=== PATIENT | male | born 1960 | race Caucasian/White ===

== ENCOUNTER 2019-04-06 07:40 | Observation (INO) | payer OTHER, SELFPAY ==
[2019-04-06 07:41] VITALS: BP 132/101; PULSE 83; RESP 16; TEMP 36.7; O2SAT 97; BMI 31.8
--- NOTE | 2019-04-06 07:52 | ED.VIS.GEN ---
History of Present Illness Chief Complaint: Abd Pain Informant: Patient Onset: - March 31 Context: Sudden Onset Timing: Continuous Quality: Initially ache now pain Location: Anteriorly over left kidney and left mid back Current Severity: Moderate Maximum Severity: Moderate Worsened by: Eating Relieved by: Nothing Associated Symptoms: Nausea Narrative: Patient is a middle-aged male with history of hypertension and renal/ureterolithiasis who presents with several days of left-sided abdominal pain. The pain radiates to the back. He denies dysuria, frequency, urgency or hematuria. He reports pain is worse with eating. Any type of food or beverage causes discomfort. He also reported heartburn with sour taste in back of his mouth for the past 5 evenings. He denies history of cholelithiasis or intolerance to greasy or fried foods. He denies history of diverticulosis or diverticulitis. He denies radiation of pain into his testicles. He denies change in color, consistency or caliber of his stool. He denies diarrhea, black or maroon stool. Change in position does not affect his discomfort. There is no history of trauma. He states this pain is different than the pain he has experienced with kidney stones. He reports history of GERD. Prior similar symptoms: No Recent Illness/Hospitalization: No - Past Medical History (1) Kidney calculi Status: Acute (2) History of hypertension Status: Acute Past Medical History - Allergies and Home Meds Allergies/Adverse Reactions: Allergies Z-MO Allergy (Uncoded 04/06/19 07:41) Other Primary Care Physician: EUNICE ECHEVERRIA [Other] Timoteo Jack MD [STAFF PHYSICIAN] - Prior records reviewed: Yes Surgical History: no surgical history Lives: Spouse/ Significant Other Smoking Status: Never smoker Drugs: None Review of Systems General: Denies: Chills, Fever, Sweats Eyes: Denies: Visual changes - bilaterally, Diplopia ENT: Denies: Rhinorrhea, Sore throat Cardiovascular: Denies: Chest pain, Palpitations, Heart racing Respiratory: Denies: Dyspnea, Cough, Dyspnea on exertion Gastrointestinal: Reports: Abdominal pain, Nausea. Denies: Vomiting, Diarrhea, Constipation, Melena, Hematochezia Genitourinary: Denies: Dysuria, Hematuria, Frequency Musculoskeletal: Reports: Back pain. Denies: Myalgias, Arthralgias, Neck pain, Swelling, Extremity Pain Skin: Denies: Rash, Wounds Neurological: Denies: Headache, Weakness, Numbness Hematologic: Denies: Easy bruising, Easy bleeding Physical Exam Vital Signs/Narrative: Vital Signs Temp Pulse Resp BP Pulse Ox 04/06/19 07:41 98.1 F 83 16 132/101 H 97 Inital Vital Signs reviewed: Yes General: Well nourished, Well developed, Acute Distress - Does look uncomfortable. He was sitting in a chair next to the examination cot when I entered. Head: Normocephalic, Atraumatic Eyes: Perrl, EOMI ENT: Moist mucous membranes, No rhinorrhea Neck: Supple, Nontender, No lymphadenopathy, No JVD Cardiovascular: Regular rate, Regular rhythm, No murmurs, Normal S1, Normal S2 Respiratory: No distress, CTA bilaterally, Chest nontender Abdomen: Soft, Nondistended, Normal bowel sounds, Tender - Tenderness to deep palpation over the left kidney. There is no guarding or rebound tenderness, Hypoactive bowel sounds. Negative for: Guarding, Rebound tenderness, Hepatomegaly, Splenomegaly, Mass, Pulsatile mass, Ventral hernia, Inguinal hernia, Umbilical hernia Back: Nontender, Normal Inspection Extremities: Nontender, No edema Skin: Normal color, No rash Neurological: Alert, Oriented x3, Cranial nerves II-XII grossly intact, Normal Strength, Normal Sensation, Normal Gait Psychological: Normal affect, Normal Mood Diagnostic/Tx/Re-eval Impressions Abdomen/Pelvis CT 04/06/19 08:38 IMPRESSION: There is a 8mm stone in the mid left ureter causing left-sided hydronephrosis, hydroureter, perinephric and periureteral inflammatory stranding. Nonobstructing left nephrolithiasis Normal appendix visualized Electronically Signed: Praveen Sanders MD at 9:11 EDT , Service support , 04/06/19 08:38 Abdomen/Pelvis without Cont [CT] Stat Laboratory Results 04/06/19 04/06/19 08:05 08:05 WBC 6.0 RBC 5.05 Hgb 15.7 Hct 44.9 MCV 88.9 MCH 31.1 MCHC 35.0 RDW Std Deviation 40.7 RDW Coeff of Julius 12.6 Plt Count 159 MPV 9.8 Immature Gran % (Auto) 0.300 Neut % (Auto) 56.0 Lymph % (Auto) 29.7 [place] % (Auto) 11.0 H Eos % (Auto) 2.2 Baso % (Auto) 0.8 Absolute Neuts (auto) 3.4 Absolute Lymphs (auto) 1.79 Absolute Nucleated RBC 0.00 Nucleated RBC % 0 Sodium 137 Potassium 4.2 Chloride 106 Carbon Dioxide 26.0 Anion Gap 5 BUN 16 Creatinine 1.26 Estim Creat Clear Calc 71.85 Est GFR (MDRD) Af Amer 76 Est GFR (MDRD) Non-Af 63 BUN/Creatinine Ratio 12.7 Glucose 110 H Calcium 8.9 - Medical Decision Making To evaluate patient's left-sided abdominal pain urine was obtained to assess for blood. This may represent atypical presentation for pancreatitis, diverticulitis. Doubt abdominal aortic aneurysm since there is no palpable pulsatile mass and there is no abdominal bruit. Patient does have palpable distal pulses which are symmetric. Doubt this represents dissection. This may represent colitis. To evaluate his pain a urinalysis, CBC and BMP were obtained. Pending results will determine if CT of the abdomen with or without contrast is optimal to evaluate patient's pain. Patient was reassessed at 0835. He still reports having discomfort. He prefers to sit in chair versus on examination cot. He is not been able to urinate. He declined pain medicine. Since he has pain over his left kidney with history of renal/ureterolithiasis will obtain CT of the abdomen without contrast to evaluate for ureterolithiasis. With history of 6 days of pain if he has diverticulitis one would expect the scan to be abnormal without contrast. Patient was reassessed at 0905. He was informed his CAT scan reveals multiple left renal stones. He also has a stone that is 6.4 x 4.6 by greater than 1 cm in length noted on the left proximal mid ureter with hydronephrosis. He is not requesting pain medicine. When patient was reassessed at 0930 he reports no change in pain. I was informed that he did not receive pain medicines that were ordered. Patient was Mello Jack to discuss case in light of the size of the stone. Patient is again having pain. In light of this will admit to the hospital with scheduled surgery for tomorrow morning. ED Disposition - Plan for ED Patient: Disposition: Acute Care Hospital [facility] Diagnosis: Hydronephrosis with urinary obstruction due to ureteral calculus Instructions: KIDNEY STONE w/ Colic Referrals: EUNICE ECHEVERRIA [Other] Timoteo Jack MD [STAFF PHYSICIAN] -
[2019-04-06] MEDS: 0.9% Normal Saline 1,000 ML 250 ML IV (08:14)
[2019-04-06 08:25] LABS: Absolute Lymphocyte Count 1.79 X10^3/uL (0.83-4.51); Absolute Neutrophil Count 3.4 X10^3/uL (2.0-7.7); Basophil# 0.05 X10^3/uL; Basophil% 0.8 % (0-1); Eosinophil# 0.13 X10^3/uL; Eosinophils% 2.2 % (0-5); Hematocrit 44.9 % (40-54); Hemoglobin 15.7 g/dL (13.0-16.5); Lymphocyte # 1.79 X10^3/ul (4.0); Lymphocyte % 29.7 % (19-41); Mean Corpuscular Hgb 31.1 pg (27.0-32.0); Mean Corpuscular Volume 88.9 fL (80-94); Mean Platelet Vol. 9.8 fl (6.2-12.0); Monocyte# 0.66 X10^3/uL; NRBC Flagged by Analyzer 0 % (0-5); Neutrophil # 3.37 X10^3/uL (2.7-7.7); Platelet Count 159 K/mm3 (150-450); RBC Distribution Width CV 12.6 % (11.6-14.6); RBC Distribution Width SD 40.7 fl (35.1-43.9); Red Blood Count 5.05 M/mm3 (4.6-6.2)
[2019-04-06 08:33] LABS: Anion Gap 5 (5-15); BUN 16 mg/dL (7-18); BUN/Creat Ratio 12.7 RATIO (10-20); Calcium,Total 8.9 mg/dL (8.5-10.1); Chloride 106 mmol/L (98-107); Creatinine, Serum 1.26 mg/dL (0.70-1.30); EST Glomerular Filtration Rate 63 mL/min (>60); Est Glom Filt Rate - Afr Amer 76 mL/min (>60); Estimated Creatinine Clearance 71.85 ml/min; Glucose 110 mg/dL (74-106); Potassium 4.2 mmol/L (3.5-5.1); Sodium Level 137 mmol/L (136-145)
--- NOTE | 2019-04-06 08:38 | CT_ITS ---
STUDY: CT ABDOMEN AND PELVIS WITHOUT CONTRAST REASON FOR EXAM: Male, 58 years old. Flank pain RADIATION DOSAGE (If Supplied By Facility): CTDIvol = ( 16.17 ) mGy, DLP = ( 888.85 ) mGycm TECHNIQUE: Transaxial images were obtained from the dome of the diaphragm to the symphysis pubis without oral contrast, and without intravenous contrast. Sagittal and coronal images were reconstructed. Individualized dose optimization techniques were used for this CT. COMPARISON: None. FINDINGS: The visualized lung bases are unremarkable. The visualized portions of the heart are within normal limits. Normal liver. Normal gallbladder and extrahepatic biliary system. Normal spleen. Normal pancreas. Normal bilateral adrenal glands. Normal right kidney. Left kidney shows hydronephrosis and hydroureter, there is perinephric and periureteral inflammatory stranding. Findings are due to a 8 mm stone in the mid left ureter seen on axial image 99, and coronal recon image 61. There are nonobstructing stones in the left kidney as well. Normal visualized stomach. Normal small intestine. Normal colon. The appendix is visualized and appears normal. Appendix best seen on coronal recon image 46 Normal abdominal aorta. Normal inferior vena cava. Normal retroperitoneum. Normal urinary bladder. Normal abdominal wall. There are diffuse degenerative changes of the visualized lumbar spine. CT/Abdomen/Pelvis without Cont IMPRESSION: There is a 8mm stone in the mid left ureter causing left-sided hydronephrosis, hydroureter, perinephric and periureteral inflammatory stranding. Nonobstructing left nephrolithiasis Normal appendix visualized Electronically Signed: Praveen Sanders MD at 9:11 EDT , Service support ,
[2019-04-06] MEDS: Ketorolac 15 MG/ML Vial IV ×3 (09:49→21:20)
[2019-04-06] MEDS: Morphine 4 MG/ML Syringe IV (09:49)
[2019-04-06] MEDS: Ondansetron 4 MG/2 ML Vial IV ×2 (10:08→21:20)
[2019-04-06 10:40] LABS: Bacteria 0 SEEN /hpf (None Seen); Mucous, Urine 0 SEEN /hpf (<or=2+); Squamous Epithelial Cells - UA 0 SEEN /hpf (0-5); White Blood Cells 0 SEEN /hpf (0-5)
[2019-04-06 10:41] LABS: Color, Urine Yellow (Yellow); Glucose, Dipstick Normal (Normal); Ketone-Dipstick Negative (Negative); Leukocyte Esterase-Dipstick 25 /ul (Negative); Nitrite-Dipstick Negative (Negative); Occult Blood-Urine 250 /ul (Negative); Protein-Dipstick 15 mg/dl (Negative); Specific Gravity, Urine 1.015 (1.002-1.030); Urine Bilirubin Dipstick Negative (Negative); Urine Clarity Clear (Clear); Urine Urobilinogen Normal (Normal)
[2019-04-06 10:51] LABS: Red Blood Cells-Urine 25-50 SEEN /hpf (0-5)
[2019-04-06 11:32] VITALS: BP 137/81; PULSE 69; RESP 18; TEMP 36.8; O2SAT 100; BMI 32.4
--- NOTE | 2019-04-06 11:45 | PCM.HP.STD ---
Problem List (1) Hydronephrosis with urinary obstruction due to ureteral calculus Status: Acute History of Present Illness Date of Admission: 04/06/19 Chief Complaint: left ureteral calculi The patient is a 58 year old male with a 8mm left ureteral calculi admitted for a pain control, plan for left ESWL and left stent tomorrow. Past Medical History Allergies Z-MO Allergy (Uncoded 04/06/19 07:41) Other Home Medications: Ambulatory Orders Medication Instructions Recorded Diltiazem CD [Cardizem CD] 120 mg PO DAILY 04/06/19 Omeprazole Magnesium [Prilosec Otc] 20 mg PO DAILY PRN 04/06/19 Surgical History: no surgical history Psychiatric History: No pertinent psych hx Lives: Spouse/ Significant Other Smoking Status: Never smoker Drugs: None - *Family History Maternal History Items: No pertinent history Review of Systems Constitutional: Denies: Chills, Fever, Weight Change HEENT: Denies: Head Aches, Sinus Congestion, Sinus Drainage Cardiovascular: Denies: Chest Pain, Palpitations Respiratory: Denies: Cough, Shortness of breath at rest, Sputum production Gastrointestinal: Reports: Abdominal Pain. Denies: Nausea, Vomiting Genitourinary: Denies: Dysuria Musculoskeletal: Denies: Joint Pain, Joint Tenderness Skin: Denies: Rash, Wounds Neurological: Denies: Numbness, Tingling, Focal weakness Psychiatric: Denies: Anxiety, Depression, Homicidal Ideations, Suicidal Ideations Hematologic/ Lymphatic: Denies: Easy Bruising, Easy Bleeding VTE Information - Inpt Only VTE Present on Admission: No VTE Mechan Device Prophylaxis: SCD's Patient Problems: Active and Suspected Problems Hydronephrosis with urinary obstruction due to ureteral calculus (Acute) - Physical Exam General: Alert, Oriented x3, Cooperative HEENT: Atraumatic, PERRLA, EOMI, Normocephalic Neck: Supple, No JVD, Negative Carotid Bruits Lungs: Clear to auscultation, Normal air movement Cardiovascular: Regular rate, No murmurs Abdomen: Bowel Sounds Present, Soft, Non Tender Extremities: No edema, Capillary Refill Less than 3 Seconds Skin: No rashes, No breakdown Musculoskeletal: No Tenderness to Palpation of Joints or Extremities Neurological: Cranial nerves II-XII grossly intact Psych/Mental Status: Normal Affect, Appropriate Vital Signs Temp Pulse Resp BP Pulse Ox 98.1 F 83 16 132/101 H 97 04/06/19 07:41 04/06/19 07:41 04/06/19 07:41 04/06/19 07:41 04/06/19 07:41 Oxygen Delivery Method Room Air Weight: 108.409 kg Body Mass Index (BMI) 32.4 Laboratory Tests Past 24 Hrs 04/06/19 04/06/19 04/06/19 08:05 08:05 10:28 WBC 6.0 RBC 5.05 Hgb 15.7 Hct 44.9 MCV 88.9 MCH 31.1 MCHC 35.0 RDW Std Deviation 40.7 RDW Coeff of Julius 12.6 Plt Count 159 MPV 9.8 Immature Gran % (Auto) 0.300 Neut % (Auto) 56.0 Lymph % (Auto) 29.7 [place] % (Auto) 11.0 H Eos % (Auto) 2.2 Baso % (Auto) 0.8 Absolute Neuts (auto) 3.4 Absolute Lymphs (auto) 1.79 Absolute Nucleated RBC 0.00 Nucleated RBC % 0 Sodium 137 Potassium 4.2 Chloride 106 Carbon Dioxide 26.0 Anion Gap 5 BUN 16 Creatinine 1.26 Estim Creat Clear Calc 71.85 Est GFR (MDRD) Af Amer 76 Est GFR (MDRD) Non-Af 63 BUN/Creatinine Ratio 12.7 Glucose 110 H Calcium 8.9 Urine Color Yellow Urine Clarity Clear Urine pH 6.0 Ur Specific [place] 1.015 Urine Protein 15 H Urine Glucose (UA) Normal Urine Ketones Negative Urine Occult Blood 250 H Urine Nitrite Negative Urine Bilirubin Negative Urine Urobilinogen Normal Ur Leukocyte Esterase 25 H Urine RBC 25-50 SEEN Urine WBC 0 SEEN Ur Squamous Epith Cells 0 SEEN Urine Bacteria 0 SEEN Urine Mucus 0 SEEN Assessment/Plan All Active Problems Kidney calculi (Acute) History of hypertension (Acute) Hydronephrosis with urinary obstruction due to ureteral calculus (Acute) admit add on for tomorrow for Left ESWL and left stent in am.
[2019-04-06] MEDS: Pantoprazole Sodium 20 MG Tablet PO (12:15)
[2019-04-06] MEDS: Cefazolin 1 GM/50 ML BAG IV ×2 (12:15→19:00)
[2019-04-06 12:53] LABS: Anion Gap 8 (5-15); BUN 17 mg/dL (7-18); BUN/Creat Ratio 10.1 RATIO (10-20); Calcium,Total 8.4 mg/dL (8.5-10.1); Chloride 108 mmol/L (98-107); Creatinine, Serum 1.68 mg/dL (0.70-1.30); EST Glomerular Filtration Rate 45 mL/min (>60); Est Glom Filt Rate - Afr Amer 55 mL/min (>60); Estimated Creatinine Clearance 53.89 ml/min; Glucose 97 mg/dL (74-106); Sodium Level 142 mmol/L (136-145)
[2019-04-06] MEDS: Metoclopramide 10 MG/2 ML Vial IV (14:16)
[2019-04-06] MEDS: 0.9% NaCl Peripheral Flush Adult/Peds IV ×5 (14:16→23:06)
[2019-04-06] MEDS: Morphine 2 MG/ML Syringe IV ×4 (14:16→23:05)
[2019-04-06 14:34] LABS: Anion Gap 7 (5-15); BUN 16 mg/dL (7-18); BUN/Creat Ratio 10.1 RATIO (10-20); Calcium,Total 8.2 mg/dL (8.5-10.1); Chloride 109 mmol/L (98-107); Creatinine, Serum 1.59 mg/dL (0.70-1.30); EST Glomerular Filtration Rate 48 mL/min (>60); Est Glom Filt Rate - Afr Amer 58 mL/min (>60); Estimated Creatinine Clearance 56.94 ml/min; Glucose 130 mg/dL (74-106); Potassium 4.3 mmol/L (3.5-5.1); Sodium Level 142 mmol/L (136-145)
[2019-04-06] MEDS: 0.9% Normal Saline 1,000 ML 75 ML IV (15:01)
[2019-04-06 16:34] LABS: Anion Gap 2 (5-15); BUN 16 mg/dL (7-18); BUN/Creat Ratio 10.7 RATIO (10-20); Calcium,Total 8.3 mg/dL (8.5-10.1); Chloride 110 mmol/L (98-107); EST Glomerular Filtration Rate 51 mL/min (>60); Est Glom Filt Rate - Afr Amer 62 mL/min (>60); Estimated Creatinine Clearance 60.36 ml/min; Glucose 106 mg/dL (74-106); Potassium 4.4 mmol/L (3.5-5.1); Sodium Level 139 mmol/L (136-145)
[2019-04-06 18:55] VITALS: BP 125/77; PULSE 73; RESP 18; TEMP 36.7; O2SAT 97
[2019-04-06] MEDS: Docusate Sodium 100 MG Capsule 200 MG PO (21:20)
[2019-04-06 21:28] VITALS: BP 133/83; PULSE 70; RESP 18; TEMP 36.5; O2SAT 95
[2019-04-07] VITALS (9 sets, daily range): BP systolic 127–158; BP diastolic 72–89; PULSE 70–96; RESP 16–18; TEMP 36.1–36.8; O2SAT 92–98; BMI 32.4
[2019-04-07] MEDS: Morphine 2 MG/ML Syringe IV (05:16)
[2019-04-07] MEDS: 0.9% NaCl Peripheral Flush Adult/Peds IV ×2 (05:22→06:02)
[2019-04-07] MEDS: 0.9% Normal Saline 1,000 ML 75 ML IV (05:22)
[2019-04-07] MEDS: Ketorolac 15 MG/ML Vial IV (06:02)
--- NOTE | 2019-04-07 07:12 | PCM.PROGNOTE ---
Patient Problems: Active and Suspected Problems Hydronephrosis with urinary obstruction due to ureteral calculus (Acute) Subjective: Admitted for stone blocking the mid left ureter plan to proceed with shockwave lithotripsy and placement of stent today. - Physical Exam General: Alert, Oriented x3, Cooperative HEENT: Atraumatic, PERRLA, EOMI, Normocephalic Neck: Supple, No JVD, Negative Carotid Bruits Lungs: Clear to auscultation, Normal air movement Cardiovascular: Regular rate, No murmurs Abdomen: Bowel Sounds Present, Soft, Non Tender Extremities: No edema, Capillary Refill Less than 3 Seconds Skin: No rashes, No breakdown Musculoskeletal: No Tenderness to Palpation of Joints or Extremities Neurological: Cranial nerves II-XII grossly intact Psych/Mental Status: Normal Affect, Appropriate Vital Signs Temp Pulse Resp BP Pulse Ox 98.3 F 86 18 150/85 H 95 04/07/19 01:58 04/07/19 01:58 04/07/19 01:58 04/07/19 01:58 04/07/19 01:58 Oxygen Delivery Method Room Air Weight: 108.409 kg Body Mass Index (BMI) 32.4 Intake and Output for Last 24 Hours 04/05/19 04/06/19 04/07/19 23:59 23:59 23:59 Intake Total 2971 / 2971 449 / 449 Output Total 1725 / 1725 500 / 500 Balance 1246 / 1246 -51 / -51 Laboratory Tests Past 24 Hrs 04/06/19 04/06/19 04/06/19 08:05 08:05 10:28 WBC 6.0 RBC 5.05 Hgb 15.7 Hct 44.9 MCV 88.9 MCH 31.1 MCHC 35.0 RDW Std Deviation 40.7 RDW Coeff of Julius 12.6 Plt Count 159 MPV 9.8 Immature Gran % (Auto) 0.300 Neut % (Auto) 56.0 Lymph % (Auto) 29.7 [place] % (Auto) 11.0 H Eos % (Auto) 2.2 Baso % (Auto) 0.8 Absolute Neuts (auto) 3.4 Absolute Lymphs (auto) 1.79 Absolute Nucleated RBC 0.00 Nucleated RBC % 0 Sodium 137 Potassium 4.2 Chloride 106 Carbon Dioxide 26.0 Anion Gap 5 BUN 16 Creatinine 1.26 Estim Creat Clear Calc 71.85 Est GFR (MDRD) Af Amer 76 Est GFR (MDRD) Non-Af 63 BUN/Creatinine Ratio 12.7 Glucose 110 H Calcium 8.9 Urine Color Yellow Urine Clarity Clear Urine pH 6.0 Ur Specific [place] 1.015 Urine Protein 15 H Urine Glucose (UA) Normal Urine Ketones Negative Urine Occult Blood 250 H Urine Nitrite Negative Urine Bilirubin Negative Urine Urobilinogen Normal Ur Leukocyte Esterase 25 H Urine RBC 25-50 SEEN Urine WBC 0 SEEN Ur Squamous Epith Cells 0 SEEN Urine Bacteria 0 SEEN Urine Mucus 0 SEEN 04/06/19 04/06/19 04/06/19 12:10 14:00 15:55 WBC RBC Hgb Hct MCV MCH MCHC RDW Std Deviation RDW Coeff of Julius Plt Count MPV Immature Gran % (Auto) Neut % (Auto) Lymph % (Auto) [place] % (Auto) Eos % (Auto) Baso % (Auto) Absolute Neuts (auto) Absolute Lymphs (auto) Absolute Nucleated RBC Nucleated RBC % Sodium 142 142 139 Potassium 5.0 4.3 4.4 Chloride 108 H 109 H 110 H Carbon Dioxide 26.0 26.0 27.0 Anion Gap 8 7 2 L BUN 17 16 16 Creatinine 1.68 H 1.59 H 1.50 H Estim Creat Clear Calc 53.89 56.94 60.36 Est GFR (MDRD) Af Amer 55 L 58 L 62 Est GFR (MDRD) Non-Af 45 L 48 L 51 L BUN/Creatinine Ratio 10.1 10.1 10.7 Glucose 97 130 H 106 Calcium 8.4 L 8.2 L 8.3 L Urine Color Urine Clarity Urine pH Ur Specific [place] Urine Protein Urine Glucose (UA) Urine Ketones Urine Occult Blood Urine Nitrite Urine Bilirubin Urine Urobilinogen Ur Leukocyte Esterase Urine RBC Urine WBC Ur Squamous Epith Cells Urine Bacteria Urine Mucus Medical Necessity - Tobacco Use Smoking Status: Never smoker Assessment/Plan All Active Problems Kidney calculi (Acute) History of hypertension (Acute) Hydronephrosis with urinary obstruction due to ureteral calculus (Acute)
--- NOTE | 2019-04-07 09:44 | NURSING ---
call placed to ac and report given to nurse taking over car for this patient
--- NOTE | 2019-04-07 10:14 | DCINST_ITS ---
Discharge Diet: Light diet - advance as tolerated Discharge Activity: Return to Normal Activity Call your doctor if you observe: Fever of 101 or Higher Suture Line Care: Avoid Pulling/Pushing, Avoid Pinching/Bending Instructions: KIDNEY STONE w/ Colic Allergies/Adverse Reactions: Allergies Z-MO Allergy (Uncoded 04/06/19 07:41) Other Medications to take at Discharge Diltiazem CD [Cardizem CD] 120 mg PO DAILY 04/06/19 Omeprazole Magnesium [Prilosec Otc] 20 mg PO DAILY PRN 04/06/19 Primary Care Physician: EUNICE ECHEVERRIA [Other] Timoteo Jack MD [STAFF PHYSICIAN] - Test Results: Test results from this visit will be discussed in further detail at your follow- up appointment, if applicable. Please Follow Up With: Timoteo Jack MD When: in 2 weeks, please call to make an appointment.
--- NOTE | 2019-04-07 11:02 | PCA ---
pt off floor
--- NOTE | 2019-04-07 11:17 | PCM.OPRPT ---
Problem List (1) Hydronephrosis with urinary obstruction due to ureteral calculus Status: Acute Report of Operation Date of Procedure: 04/07/19 Pre-Operative Diagnosis: Left ureteral calculi with obstruction Post-Operative Diagnosis: The same Surgery/Procedure Performed:: Left extracorporeal shockwave lithotripsy cystoscopy and left stent placement Description of Surgical Findings:: 58-year-old male was taken back to the operating room at the smooth induction of anesthesia he was placed in dorsolithotomy position penis and testicles were prepped and draped in usual sterile fashion, we then placed him supine the table we found the stone in the mid left ureter and we delivered 4000 shockwaves to the stone under fluoroscopy we made sure the stone is the F2 focal point of the lithotripter machine at the end of the treatment cycle was the stone it broken up really well but could still see fragments so I placed a stent. I went inside the bladder with a 21 [place] rigid cystourethroscope entire length urethra is normal the prostate was slightly enlarged high riding bladder neck inside the bladder was a lot of blood could really see the bladder really well but I did identify the left ureteral orifice and cannulated this event advance a wire up the left side and then over the wire place a stent left the string of the stent for easy extraction patient anesthetic was reversed plan to see him back next week with a KUB and if it is clear we will remove the stent in the left the string of the stent for easy extraction. Type of Anesthesia:: General Drains: stent - Admit VTE Documentation VTE Present on Admission: No VTE Mechan Device Prophylaxis: SCD's
[2019-04-07] MEDS: dilTIAZem CD 120 MG Capsule PO (13:02)
[2019-04-07] MEDS: Docusate Sodium 100 MG Capsule 200 MG PO (13:02)
[2019-04-07] MEDS: Phenazopyridine 95 MG Tablet 190 MG PO (13:04)
== END 2019-04-07 16:45 | disposition home or self-care (01) ==
LOC: ED 11:00 → MS3 11:10
PROVIDERS: Admitting Provider Urology; Emergency Provider Emergency Medicine; Referring Provider Urology; Visit Provider Urology
PROC: (CPT 50590; principal; 2019-04-07 09:45)
DX: N13.2 Hydronephrosis with renal and ureteral calculous obstruction (principal); I10 Essential (primary) hypertension; K21.9 Gastro-esophageal reflux disease without esophagitis; Z86.718 Personal history of other venous thrombosis and embolism; Z79.899 Other long term (current) drug therapy; I48.91 Unspecified atrial fibrillation
CPT/HCPCS: 00873; 50590; 52332; 36415; 74176; 80048; 81001; 85025; 96361; 96365; 96366; 96375; 96376; 99218; 99284; J7030; A4216; C1769; G0378; J2405

== ENCOUNTER → 2019-04-13 | Outpatient (CLI) | payer OTHER, SELFPAY ==
[2019-04-07 05:30] VITALS: BMI 32.4
--- NOTE | 2019-04-13 14:15 | RAD_ITS ---
STUDY: X-RAY - ABDOMEN/PELVIS REASON FOR EXAM: Male, 58 years old. Kidney stone TECHNIQUE: Single AP view of the abdomen / pelvis. COMPARISON: None. FINDINGS: Normal visualized lung bases. There is an unremarkable bowel gas pattern. Double-J ureteral stent on the left. Multiple radiodensities in the left pelvis. One of these may represent a ureterolith. 2 x 9 mm nephrolith on the left. The visualized liver, spleen and kidneys are grossly normal in size and morphology. Normal soft tissue structures. Normal visualized osseous structures. RAD/Abdomen Single View IMPRESSION: Double-J ureteral stent on the left. Multiple phleboliths in possible distal left ureterolith. Electronically Signed: Aris Shafer MD at 23:57 EDT , Service support ,
== END | disposition home or self-care (01) ==
LOC: RAD.FUTURE 13:41
PROVIDERS: Referring Provider Urology; Visit Provider Urology
DX: N20.0 Calculus of kidney (principal)
CPT/HCPCS: 74018

== ENCOUNTER → 2019-09-25 08:53 | Outpatient (CLI) | payer OTHER, SELFPAY ==
[2019-04-07 05:30] VITALS: BMI 32.4
--- NOTE | 2019-09-25 08:56 | RAD_ITS ---
HISTORY: Kidney stone 6 months ago. Comparison study is an x-ray of the abdomen from April 13, 2019, and a CT scan of the abdomen and pelvis from April 02, 2019. Findings: Single view of the abdomen: Many pelvic phleboliths are present. On the previous CT, at the level of the inferior endplate of the L3 vertebral body, there was an obstructing stone within the left ureter. On the previous x-ray the patient had a left ureteric stent. The stone is not identified on the previous or current x-rays. Nonobstructing nephrolith remains within the left mid kidney. Degenerative disc disease is mild at the lower lumbar spine. Some facet arthropathy. RAD/Abdomen Single View IMPRESSION: Nonobstructing left ureteric stone. Removal of left ureteric stent. Left ureteric stone seen on the CT scan of April 06, 2019 not identified Many pelvic phleboliths which proved to be not within the ureter on the previous study at 2352 Reported and signed by: Aurelio Griffith MD Electronically Signed: Aurelio Griffith MD at 23:51 EST Tel , Service support ,
== END ==
PROVIDERS: Referring Provider Urology; Visit Provider Urology
DX: N20.0 Calculus of kidney (principal)
CPT/HCPCS: 74018